=== PATIENT | male | born 1950 ===

== ENCOUNTER 2021-04-10 05:50 | Day surgery (SDC) | payer OTHER ==
[~2021-04-10] VITALS: Ht 175.3 cm; Wt 87.1 kg
[~2021-04-10 05:50] MED LIST: TOLTERODINE TART4 MG PO
[2021-04-10] MEDS ORDERED: CICLOPIROX15 GM (08:26)
[2021-04-10] MEDS ORDERED: CIALIS20 MG (08:26)
== END 2021-04-10 09:59 | disposition home or self-care (01) ==
LOC: SURH 05:50 → CIR.AMB 05:50 → O/R 05:50 → CIR.AMB 09:59 → EDSTATUS 10:45 → SURH 10:45 → O/R 04-11 14:29
PROVIDERS: ATTEND Colon & Rectal Surgery
DX: K35.20 Acute appendicitis with generalized peritonitis, without abscess (principal); Z20.822 Contact with and (suspected) exposure to COVID-19